=== PATIENT | female | born 1985 | race Caucasian/White ===

== ENCOUNTER → 2022-02-13 13:07 | Outpatient (CLI) | payer OTHER, SELFPAY ==
--- NOTE | 2022-02-13 13:13 | XR_ITS ---
FINAL REPORT CLINICAL HISTORY: right hand and wrist pain FINDINGS: RIGHT WRIST Three views demonstrate no acute fracture or dislocation. The visualized joint spaces are normally aligned. The joint spaces are intact. The soft tissues are unremarkable. IMPRESSION: No acute bony abnormality. Reviewed, Interpreted and Dictated by Emiliano Cornejo III, MD Transcribed by Della Aguillon Authenticated and [facility]
--- NOTE | 2022-02-13 13:13 | XR_ITS ---
FINAL REPORT CLINICAL HISTORY: right wrist and hand pain FINDINGS: RIGHT HAND Three views demonstrate no acute fracture. There is no dislocation. The visualized joint spaces are normally aligned. The joint spaces are preserved. The soft tissues are unremarkable. IMPRESSION: No acute bony abnormality. Reviewed, Interpreted and Dictated by Emiliano Cornejo III, MD Transcribed by Della Aguillon Authenticated and [facility]
== END ==
PROVIDERS: PCP Family Medicine; Visit Provider Family Medicine
DX: M25.531 Pain in right wrist (principal); M79.641 Pain in right hand
CPT/HCPCS: 73110; 73130

== ENCOUNTER 2024-12-30 10:35 | Outpatient (CLI) | payer MEDICAID, SELFPAY ==
--- OUTSIDE RECORDS SUMMARY | 2024-11-30 11:00 | XMS_ITS | Encounter Summary ---
Author Organization [place] [address] Care Team Providers Care Complaint Evaluation Officer Name Role Phone No Pcp, Per Patient Primary Care Provider Mallory payne Reason for Referral * Consultation (Routine) - Pending Review Specialty Diagnoses / Procedures Referred By Za blankenship Referred To Contact Otolaryngology Diagnoses Acute sinusitis, recurrence not specified, unspecified location Procedures [place] OFFICE/OUTPATIENT NEW MODERATE MDM 45 MINUTES Homero Pruitt PA-C [address] [place] [address] Phone: tel: fax: [facility] [address] [place] [address] [place] [id number] Phone: tel: fax: Referral ID Status Reason Start Date Expiration Date V isits Requested Visits Authorized [id number] Pending Review 11/30/2024 11/30/2025 99 99 Reason for Visit * Reason Comments Nasal Congestion with headache, body aches, nausea, slight cough, and sore throat mainly at night x 3 WEEKS Encounter Details Date Type Department Care Team (Late st Contact Info) Description 11/30/2024 12:00 PM EDT Office Visit [facility] [address] [id number] Homero Pruitt PA-C [address] [place] [address] Acute sinusitis, recurrence not specified, unspecified location (Primary Dx) Social History Tobacco Use Types Packs/Day Years Used Date Smoking Tobacco: Former Cigarettes Q uit: 2023 Smokeless Tobacco: Never Alcohol Use Standard Drinks/Week Comments Not Currently 0 (1 standard drink = 0.6 oz pur e alcohol) sober 4 years + Sexually Active Control Partners Comments Not Currently Comments No Sex and Gender Information Value Date Recorded Sex Assigned at Not on file Legal Sex Female 9:18 PM EDT Gender Identity Not on file Sexual Orientation Not on file documented as of this encounter Last Filed Vital Signs Vital Sign Reading Time Taken Comments Blood Pressure 130/82 11/30/2024 12:11 PM EDT Pulse 83 11/30/2024 12:11 PM EDT Temperature 36.6 C (97.8 F) 11/30/2024 12:11 PM EDT Respiratory Rate 12 11/30/2024 12:11 PM EDT Oxygen Saturation 99% 11/30/2024 12:11 PM EDT Inhaled Oxygen Concentration - - Weight 73.5 kg (162 lb) 11/30/2024 12:11 PM EDT Height 152.4 cm (5') 11/30/2024 12:11 PM EDT Body Mass Index 31.64 11/30/2024 12:11 PM EDT documented in this encounter Ordered Prescriptions Prescription Sig Dispense Quantity Refills Last Filled Start Date End Date methylPREDNISolon e (MEDROL DOSPACK) 4 mg Oral Tablets, Dose PackIndications:A cute sinusitis, recurrence not specified, unspecified location See package instructions 21 Tablet 11/30/2024 azithromycin (ZITHROMAX) 250 mg Oral TabletIndications :Acute sinusitis, recurrence not specified, unspecified location Take 2 tablets (500 mg) on Day 1, followed by 1 tablet (250 mg) once daily on Days 2 through 5. 6 Tablet 11/30/2024 documented in this encounter Progress Notes * Homero Pruitt PA-C - 11/30/2024 12:00 PM EDT Subjective: Patient ID: Rachele Velásquez is a 39 y.o. female. Chief Complaint Patient presents with Nasal Congestion with headache, body aches, nausea, slight cough, and sore throat mainly at night x 3 WEEKS Patients past medical, family and social histories were reviewed and updated. There were no changesexcept as noted. 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 Rachele Velásquez is a Established Patient Last Urgent Care Visit: 04/15/2024 HPI: This is a 39 y.o. female that presents today with worsening cough, sinus/nasal congestion, myalgias, and sore throat. Symptoms began about 3 weeks ago and have persisted. She states some days are worse than others but over all symptoms have not necessarily worsened. They certainly have not improved. Cough is productive. + bilateral sinus pressure but greatest on the right compared to left. Confirms post nasal drainage. Denies fever. Mild sore throat. + Right ear pressure. She reports history of recurrent sinus infections and allergies. Objective: Vitals: 11/30/24 1211 BP: 130/82 BP Location: Left arm Patient Position: Sitting Pulse: 83 Resp: 12 Temp: 97.8 ??F (36.6 ??C) TempSrc: Oral SpO2: 99% Weight: 162 lb (73.5 kg) Height: 5' (1.524 m) Body mass index is 31.64 kg/m??. Physical Exam Constitutional: Appearance: Normal appearance. NAD. Non-toxic. HENT: Head: Atraumatic. Right Ear: External ear normal. EAC clear. TM clear without erythema, edema or bulging. Left Ear: External ear normal. EAC clear. TM clear without erythema, edema or bulging. Nose: Normal. Sinuses: Mild tenderness to the maxillary and frontal sinuses. Mouth: Mucous membranes are moist. Mouth/Throat: Oropharynx with mild generalized erythema and edema.. No tonsillar hypertrophy or exudate. Uvula normal and midline. Airway patent. Eyes: Conjunctiva/sclera: Conjunctivae normal. Sclera white. EOM's intact. Cardiovascular: Rate and Rhythm: Regular rhythm. Pulmonary: Effort: Pulmonary effort is normal. Lungs clear. No wheezing, rhonchi or rales. Skin: General: Skin is warm and dry. Neurological: Mental Status: She is alert. Psychiatric: Mood and Affect: Mood normal. Diagnostic Test Results: No results found for this visit on 11/30/24. Medical Decision Making: Patient was seen at Urgent Care today for worsening cough, sinus/nasal congestion and sore throat. Symptoms have worsened over several weeks and she has noted history of frequent sinus infections. On presentation, pt appears well. They are afebrile, not hypoxic or in any respiratory distress. Lungs clear on auscultation. There is some tenderness over the sinuses. Remainder of exam is unremarkable. Pt is treated for sinusitis. She has had success with Azithromycin and prednisone in the past. These are again prescribed today. She does appear to have recurrent sinusitis and is therefore referred to ENT. Pt was discharged home with follow-up and return precautions. Assessment & Plan Acute sinusitis, recurrence not specified, unspecified location Orders: azithromycin (ZITHROMAX) 250 mg Oral Tablet; Take 2 tablets (500 mg) on Day 1, followed by 1 tablet(250 mg) once daily on Days 2 through 5. methylPREDNISolone (MEDROL DOSPACK) 4 mg Oral Tablets, Dose Pack; See package instructions AMB REFERRAL TO ENT documented in this encounter Miscellaneous Notes * Patient Instructions - Homero Pruitt PA-C - 11/30/2024 12:00 PM EDT Take any prescribed medications as directed. You may additionally take [id number] antihistamine such as mia, zyrtec, claritin. Alternate Tylenol and Motrin every 4 hours as directed as needed for chills, fever. Follow-up with your primary care physician or return if not improved. Go to the ER if you develop significant shortness of breath, difficulty breathing, high fever, chest pain or other major concerning symptoms. documented in this encounter Plan of Treatment Scheduled Referrals Name Type Priority Associated Diagnoses Orde r Schedule AMB REFERRAL TO ENT Outpatient Referral Routine Acute sinusitis, recurrence not specified, unspecified location Ordered: 11/30/2024 documented as of this encounter Visit Diagnoses Diagnosis Acute sinusitis, recurrence not specified, unspecified location- Primary documented in this encounter Discontinued Medications Medication Sig Discontinue Reason Start Date End Da te escitalopram oxalate (LEXAPRO) 20 mg Oral Tablet DELETE-Therapy completed 11/30/2024 hydrOXYzine (ATARAX) 10 mg Oral Tablet Take 1 Tablet by mouth every 6 hours as needed for Itching. DELETE-Therapy completed 09/06/2023 11/30/2024 hydrOXYzine (ATARAX) 25 mg Oral Tablet Take 50 mg by mouth every 8 hours as needed for Itching. DELETE-Therapy completed 11/30/2024 documented as of this encounter Care Teams Complaint Evaluation Officer Relationship Specialty Start Date End Date No Pcp, Per Patient PCP - General 09/06/23 documented as of this encounter
--- OUTSIDE RECORDS SUMMARY | 2024-12-09 14:40 | XMS_ITS | Encounter Summary ---
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 Name Role Phone No Pcp, Per Patient Primary Care Provider Mallory payne Reason for Referral * MRI/CAT Scan (Routine) - Closed Specialty Diagnoses / Procedures Referred By Za blankenship Referred To Contact Radiology Diagnoses Chronic sinusitis, unspecified location Sinus pressure Hypertrophy of nasal turbinates Procedures CT SINUS LAND ALEJANDRINA WO CONTRAST Ezequiel Howard MD [address] [facility] [address] [facility] [place] [address] Phone: tel: fax: Referral ID Status Reason Start Date Expiration Date Visits Re quested Visits Authorized [id number] Closed 12/09/2024 12/09/2025 1 1 Reason for Visit * Reason Comments Sinus Problem * Consultation (Routine) - Pending Review Specialty Diagnoses / Procedures Referred By Za blankenship Referred To Contact Otolaryngology Diagnoses Acute sinusitis, recurrence not specified, unspecified location Procedures [place] OFFICE/OUTPATIENT NEW MODERATE MDM 45 MINUTES Homero Pruitt PA-C [address] [place] [address] Phone: tel: fax: [facility] [address] [address] Phone: tel: fax: Referral ID Status Reason Start Date Expiration Date V isits Requested Visits Authorized [id number] Pending Review 11/30/2024 11/30/2025 99 99 Encounter Details Date Type Department Care Team (Late st Contact Info) Description 12/09/2024 2:40 PM EST Office Visit [facility] [place] [address] [facility] 101 [place] [address] Ezequiel Howard MD [address] [facility] [address] [facility] [place] [address] Chronic sinusitis, unspecified location (Primary Dx); Sinus pressure; Recurrent headache; Hypertrophy of nasal turbinates Social History Tobacco Use Types Packs/Day Years [...] Sign Reading Time Taken Comments Blood Pressure - - Pulse - - Temperature - - Respiratory Rate - - Oxygen Saturation - - Inhaled Oxygen Concentration - - Weight 73.5 kg (162 lb 1.6 oz) 12/09/2024 2:25 P M EST Height 152.4 cm (5') 12/09/2024 2:25 PM EST Body Mass Index 31.66 12/09/2024 2:25 PM EST documented in this encounter Ordered Prescriptions Prescription Sig Dispense Quantity Refills Last Filled Start Date End Date fluticasone propionate (FLONASE) 50 mcg/actuation Nasl Lowry, SuspensionIndicati ons:Chronic sinusitis, unspecified location,Sinus pressure,Hypertrop hy of nasal turbinates 2 Sprays by Nasal route daily. 1 Each 5 12/09/2024 sod zwqgu-tuxgff-njuvo z bottle (NEILMED SINUS RINSE COMPLETE) melquiades packet with rinse deviceIndications: Chronic sinusitis, unspecified location,Sinus pressure,Hypertrop hy of nasal turbinates 1 Package by sinus irrigation route daily for 30 days. 30 Each 4 12/09/2024 documented in this encounter Progress Notes * Ezequiel Howard MD - 12/09/2024 2:40 PM EST Images from the original note were not included. Rachele Velásquez 39 y.o. female : 1985 12/09/2024 New Ear Nose Throat or Allergy Patient - Pediatric or Adult Ezequiel Howard MD, [facility] Referring Provider: Homero Pruitt PA-C Assessment and Plan: 12/09/2024 Diagnoses addressed this visit: 1. Chronic sinusitis, unspecified location CT SINUS LAND ALEJANDRINA WO CONTRAST sod aiiku-xomaqc-vclnil bottle (NEILMED SINUS RINSE COMPLETE) melquiades packet with rinse device fluticasone propionate (FLONASE) 50 mcg/actuation Nasl Lowry, Suspension 2. Sinus pressure CT SINUS LAND ALEJANDRINA WO CONTRAST sod riyeb-lhngqz-luujha bottle (NEILMED SINUS RINSE COMPLETE) melquiades packet with rinse device fluticasone propionate (FLONASE) 50 mcg/actuation Nasl Lowry, Suspension 3. Recurrent headache 4. Hypertrophy of nasal turbinates CT SINUS LAND ALEJANDRINA WO CONTRAST sod lrjrc-ugjuwe-kzschb bottle (NEILMED SINUS RINSE COMPLETE) melquiades packet with rinse device fluticasone propionate (FLONASE) 50 mcg/actuation Nasl Lowry, Suspension Ms Velásquez is a pleasant 39-year-old lady who presented today for evaluation of chronic sinusitis. She was tested for environmental allergies 2 years ago which showed no significant sensitivities. She has tried Flonase, saline, azelastine, and Atrovent sprays all without relief. She recently completed a course of azithromycin as well as a Medrol Dosepak but still has persistent symptoms of facial pressure, headaches, nasal congestion. Because she recently completed the antibiotics and steroids recommended proceeding with CT imaging of her sinuses. I will have her continue the Flonase and saline sprays but stop the azelastine. I will follow-up with her after the CT imaging is complete. Return for FOLLOW UP TEST RESULTS. Chief Complaint: Sinus Problem HPI Rachele Velásquez is a 39 y.o. female who is being seen in consultation at the request of Homero Pruitt PA-C for Sinusitis . Patient states symptoms started years ago. Symptoms include: headaches itchy eyes itchy nose sore throat nasal congestion postnasal drip pressure sensation in ears sinus pressure sneezing watery eyes sinus congestion fatigue Worst Symptom: headaches sinus pressure Are symptoms seasonal or all year long? all year long Worst season(s): all the time Environmental triggers? Basement: Yes--it is damp dog , pt vapes, and mother smokes around her Medications currently using: Allergy/ Sinus Medications: Oral Antihistamines: Zyrtec; somewhat effective Antibiotics ( How long was treatment): Azithromycin- not very effective Medications tried in past: Antihistamines: Claritin; ineffective and Carolyn; ineffective Steroid nasal spray: none Non-Steroid nasal spray: Astelin- somewhat effective Decongestants: none Singulair: No Oral Steroid: No Saline nasal spray: No Saline irrigation (such as Neti pot, Sinus rinse by [employer] [facility] or Navage): No History of: Nasal Polyps? no Asthma or eczema? Yes Chronic or recurrent sinus infections? Yes; monthly Sinus surgery? no Previously been allergy tested or received treatment with immunotherapy? If so, where? yes, explain: 1-[address] Sinus imaging? no Other testing? no Does the patient have any trouble with anesthesia? no Is there a family history of: Trouble with anesthesia? no Malignant Hyperthermia (high fever due to anesthesia)? no Pseudo cholinesterase deficiency (enzyme deficiency/very long time to wake from anesthesia)? no I, Dr.Nathan Howard, have personally reviewed all above HPI elements in person and have updated as needed. Exam: Vitals: 12/09/24 1425 Weight: 162 lb 1.6 oz (73.5 kg) Height: 5' (1.524 m) Body mass index is 31.66 kg/m??. General: -: well nourished, well developed, well groomed, age appropriate oral communication, normal voice sounds, no stridor Head and Face: -: no abnormalities of head and face, facial strength symmetrical Eyes: -: ocular mobility and gaze alignment normal wears glasses: Yes External Nose: -: Nasal dorsum grossly normal, without lesion Internal Nose: Mucosa: edematous Turbinates: hypertrophied Hearing: -: Clinical hearing thresholds-Normal Right Ear: -: Pre and post-auricular soft tissue and pinna normal, Right auricle, EAC and TM Normal Left Ear: -: Pre and post-auricular soft tissue and pinna normal, Left auricle, EAC and TM normal Oral Cavity: Edentulous: upper, lower Oropharynx: -: Mucosa without lesion, tongue, hard palate, soft palate and tonsillar fossa within normal limits Respiratory: -: (no stridor) Neurological: -: Alert, appropriate and does not appear agitated, Oriented to time, place and person, Normal mood and affect Medical History: Medications ordered prior to the current encounter[1] Problem List[2] Past Medical History[3] Allergies[4] Surgical History[5] Social History[6] Family History[7] [facility] [address] [facility] [phone] This note may have been partially dictated using [employer] voice recognition software and may contain unintended error. [1] Current Outpatient Medications on File Prior to Visit Medication Sig Dispense Refill ARIPiprazole (ABILIFY) 5 mg Oral Tablet Take 5 mg by mouth daily. azelastine (ASTELIN) 137 mcg (0.1 %) Nasl Lowry, Non-Aerosol use 2 spray(s) in each nostril twice daily cloNIDine (CATAPRES) 0.1 mg Oral Tablet TAKE 1 TABLET BY MOUTH IN THE EVENING NEEDED FOR ANXIETYAND IRRITABILITY DEPO-PROVERA 150 mg/mL IM Suspension Inject 1 mL every 12 weeks dicyclomine (BENTYL) 20 mg Oral Tablet Take 1 Tablet by mouth 3 times daily. fexofenadine (CAROLYN) 180 mg Oral Tablet 180 mg. fluticasone propionate (FLONASE) 50 mcg/actuation Nasl Lowry, Suspension USE 1 SPRAY(S) IN EACH NOSTRIL ONCE DAILY ipratropium (ATROVENT) 42 mcg (0.06 %) Nasl Lowry, Non-Aerosol 2 Sprays by Nasal route 3 times daily. 15 mL 2 lamoTRIgine (LAMICTAL) 100 mg Oral Tablet Take 1 Tablet by mouth daily. meloxicam (MOBIC) 15 mg Oral Tablet TAKE 1 TABLET BY MOUTH ONCE DAILY NEEDED WITH FOOD methylcellulose (CITRUCEL) 500 mg Oral Tablet Take 2 Tablets by mouth daily. methylPREDNISolone (MEDROL DOSPACK) 4 mg Oral Tablets, Dose Pack See package instructions 21 Tablet0 montelukast (SINGULAIR) 10 mg Oral Tablet Take 1 Tablet by mouth nightly. phentermine (ADIPEX-P) 37.5 mg Oral Tablet TAKE 1 TABLET BY MOUTH ONCE DAILY FOR 30 DAYS propranoloL (INDERAL) 10 mg Oral Tablet TAKE 1/2 TO 1 (ONE-HALF TO ONE) TABLET BY MOUTH TWICE DAILYAS NEEDED FOR ANXIETY pseudoephedrine (SUDAFED) 30 mg Oral Tablet Take 1 Tablet by mouth every 6 hours as needed for Congestion. 30 Tablet 0 SUMAtriptan (IMITREX) 50 mg Oral Tablet valACYclovir (VALTREX) 500 mg Oral Tablet vilazodone (VIIBRYD) 20 mg Oral Tablet TAKE 1 TABLET BY MOUTH ONCE DAILY WITH 350 CALORIE MEAL vilazodone (VIIBRYD) 40 mg Oral Tablet TAKE 1 TABLET BY MOUTH ONCE DAILY TAKE WITH A 350 CALORIE MEAL VRAYLAR 1.5 mg Oral Capsule take 1 capsule by mouth once daily as directed ZOLMitriptan (ZOMIG) 2.5 mg Oral Tablet TAKE 1 TABLET AT ONSET OF MIGRAINE, MAY REPEAT IN 1 HOUR IFNEEDED. MAX 2 TABLETS PER DAY // SUMATRIPTAN NOT APPROVED, PLEASE DC OUT OF YOUR SYSTEM No current facility-administered medications on file prior to visit. [2] There is no problem list on file for this patient. 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 No pertinent family history. documented in this encounter Miscellaneous Notes * Patient Instructions - Jillian Agrawal RMA - 12/09/2024 2:40 PM EST Images from the original note were not included. Please call our Central Scheduling department at to schedule your CT sinus. Nasal saline irrigation is used to maximize the health of the sinuses particularly in patients withpoor sinus function due to a history of chronic sinus problems or patients recently undergoing surgery. Saline preparation: Our preferred method is to use the Spoke Sinus Rinse bottle system and the premixed saline packets. Follow the directions that come with the bottle for preparation. You will want to use distilled water or sterilize your own water by boiling water and placing it in a pitcher. Allow it to cool to room temperature before rinsing your nose out. You will fill up the provided bottle or neti pot with the water and add in 1 packet of the salt that comes with the kit. Irrigation instructions: 1. Insert either a squeeze bottle (preferred), baby bulb syringe, or a water pik attachment gently into your nose an inch or less. 2. Lean your head over a sink. 3. Wash each side of your nose with enough solution until it runs back out clear (at least 50cc). 4. Perform nasal irrigation twice a day as long as directed or until instructed to use a taper schedule. 5. If you use a nasal steroid or other medicated rinse: You should always use the saline rinse before using your medicated spray or rinse so you do not rinse out the medication. 6. Change the bottle, bulb, or syringe out every two weeks. Preparing your own saline mixture Some patients prefer to prepare their own saline. Below are instructions for doing this. a. Boil 1 quart of tap or bottled water and pour into a clean jar. b. Add 1 to 3 teaspoons of non-iodized salt per quart of water and shake or stir. Adjust the amountof salt as needed that irritates your nose the least. c. Some people prefer to add 1 teaspoon of baking soda (pure bicarbonate) to the solution to make it less irritating. This is optional. d. Make up fresh each day or store in a refrigerator for no longer than one week. e. LET THE WATER COOL TO ROOM TEMPERATURE BEFORE IRRIGATING YOUR NOSE. If it has been in the refrigerator you can warm it to room temperature with a microwave if preferred. DO NOT USE HOT SOLUTION. f. Pour some of the solution into a clean bowl and fill the bottle or syringe with the salt water mixture. documented in this encounter Plan of Treatment Not on file documented as of this encounter Results * CT SINUS LAND ALEJANDRINA WO CONTRAST (12/28/2024 2:58 PM EST) Anatomical Region Laterality Modality Head Computed Tomogra phy 12/28/2024 2:58 PM EST Impressions 12/29/2024 8:58 AM EST 1. Overall mild to moderate diffuse nonuniform paranasal sinus disease with greatest involvement bilateral ethmoid sinuses, left maxillary and left frontal sinuses. No sequelae of chronic sinusitis. 2. No nasal cavity polypoid type mass. 3. Specific anatomical findings as noted above. Note: Radiology results need to be interpreted within a comprehensive clinical context. If you have questions about the radiology report, please contact the office of the ordering clinician. Narrative 12/29/2024 8:[address] SINUS LAND ALEJANDRINA WO CONTRAST 12/28/2024 2:58 PM CLINICAL HISTORY: 39 years-old with chronic sinusitis with sinus pressure and hypertrophy of nasal turbinates. J32.9-Chronic sinusitis, ptgovpleuis-SOC-74-CM J34.89-Other specified disorders of nose and nasal avzbgtj-TDH-94-CM J34.3-Hypertrophy of nasal dlhtrlzhzv-VSD-70-CM COMPARISON: None. PROCEDURE COMMENTS: Volumetric helical scanning of the paranasal sinuses. 1 mm multiplanar reconstructions with bone and soft tissue algorithm. FINDINGS: Both maxillary sinuses have aerated secretions, some dependent and some foamy, with mild to moderate involvement on the left and mild involvement on the right. Left infundibulum is patent. Inferior right infundibulum is narrowed by soft tissues. Both ethmoid sinuses have moderate nonuniform opacification. Mild mucosal thickening at both frontal ethmoid junction, left greater than right. Upper left frontal sinus has mild to moderate confluent opacification. Minimal very mild mucosal thickening involves bilateral sphenoid sinuses inferiorly and posteriorly; right greater than left. No bony sinus wall hypertrophy. Nasal septum is relatively straight. Subtle curvature towards the left at its mid aspect. Small amount of asymmetric soft tissue occupies medial mid right nasal cavity. No large polypoid like defect. Each middle meatus is patent. Orbital and facial soft tissues show no inflammatory change. Patient is edentulous superiorly. Mastoid sinuses and middle ear cavities are clear. Included portions of inferior brain and nasopharynx are unremarkable. Surgical anatomy below: Cribriform: No dehiscence. Olfactory recess Keros class: Right: Type II (4-7mm.) Left: Type II (4-7mm.) Lamina papyracea: Intact bilaterally. Soraya cell: None. Uncinate impingement on orbital wall: None. Anterior ethmoidal artery: Anterior ethmoidal notch abuts the fovea ethmoidalis bilaterally. Mild bilateral supraorbital ethmoid pneumatization although currently opacified. Sphenoid pneumatization is sellar. Anterior clinoid pneumatization: No pneumatization. Onodi cells: None Sphenoid dehiscence: No carotid canal or optic canal dehiscence. No septal insertion on either carotid canal. Procedure Note Cindi Earl MD - 12/29/2024 CT SINUS LAND ALEJANDRINA WO CONTRAST 12/28/2024 2:58 PM CLINICAL HISTORY: 39 years-old with chronic sinusitis with sinus pressureand hypertrophy of nasal turbinates. J32.9-Chronic sinusitis,nrdepicutyk-FFH-37-CM J34.89-Other specified disorders of nose and nasal ixlxmea-XDZ-98-CM J34.3-Hypertrophy of nasal fevupkbobn-CAG-36-CM COMPARISON: None. PROCEDURE COMMENTS: Volumetric helical scanning of the paranasal sinuses.1 mm multiplanar reconstructions with bone and soft tissue algorithm. FINDINGS: Both maxillary sinuses have aerated secretions, some dependent and somefoamy, with mild to moderate involvement on the left and mild involvement on theright. Left infundibulum is patent. Inferior right infundibulum is narrowed bysoft tissues. Both ethmoid sinuses have moderate nonuniform opacification.Mild mucosal thickening at both frontal ethmoid junction, left greater thanright. Upper left frontal sinus has mild to moderate confluent opacification.Minimal very mild mucosal thickening involves bilateral sphenoid sinusesinferiorly and posteriorly; right greater than left. No bony sinus wall hypertrophy. Nasal septum is relatively straight.Subtle curvature towards the left at its mid aspect. Small amount of asymmetricsoft tissue occupies medial mid right nasal cavity. No large polypoid likedefect. Each middle meatus is patent. Orbital and facial soft tissues show no inflammatory change. Patient is edentulous superiorly. Mastoid sinuses and middle ear cavities areclear. Included portions of inferior brain and nasopharynx are unremarkable. Surgical anatomy below: Cribriform: No dehiscence. Olfactory recess Keros class: Right: Type II (4-7mm.) Left: Type II(4-7mm.) Lamina papyracea: Intact bilaterally. Soraya cell: None. Uncinate impingement on orbital wall: None. Anterior ethmoidal artery: Anterior ethmoidal notch abuts the foveaethmoidalis bilaterally. Mild bilateral supraorbital ethmoid pneumatization although currently opacified. Sphenoid pneumatization is sellar. Anterior clinoid pneumatization: No pneumatization. Onodi cells: None Sphenoid dehiscence: No carotid canal or optic canal dehiscence. Noseptal insertion on either carotid canal. IMPRESSION: 1. Overall mild to moderate diffuse nonuniform paranasal sinus diseasewith greatest involvement bilateral ethmoid sinuses, left maxillary and leftfrontal sinuses. No sequelae of chronic sinusitis. 2. No nasal cavity polypoid type mass. 3. Specific anatomical findings as noted above. Note: Radiology results need to be interpreted within a comprehensiveclinical context. If you have questions about the radiology report, please contactthe office of the ordering clinician. us Ezequiel Howard MD IMG CT ORDERABLES Final Resu lt documented in this encounter Visit Diagnoses Diagnosis Chronic sinusitis, unspecified location- Primary Sinus pressure Other diseases of nasal cavity and sinuses Recurrent headache Headache Hypertrophy of nasal turbinates Chronic sinusitis, unspecified location Sinus pressure Other diseases of nasal cavity and sinuses Hypertrophy of nasal turbinates documented in this encounter Care Teams Tube Rebuilder Relationship Specialty Start Date End Date No Pcp, Per Patient PCP - General 09/06/23 documented as of this encounter
--- OUTSIDE RECORDS SUMMARY | 2024-12-11 12:30 | XMS_ITS | Encounter Summary ---
Author Organization [place] [address] Care Team Providers Care Intake Specialist Name Role Phone No Pcp, Per Patient Primary Care Provider Mallory payne Reason for Referral * Consultation (Routine) - Pending Review Specialty Diagnoses / Procedures Referred By Za blankenship Referred To Contact Family Medicine Diagnoses Sore throat Chest tightness Shortness of breath Viral URI Procedures [place] OFFICE/OUTPATIENT NEW MODERATE MDM 45 [place] [address] [place] [id number] Phone: tel: fax: Referral ID Status Reason Start Date Expiration Date V isits Requested Visits Authorized [id number] Pending Review 12/11/2024 12/11/2025 99 99 Question Answer Reason for Primary Care Referral Establish with Primary Care Reason for Visit * Reason Comments Sore Throat sore throat, body ac hes, hard to take deep breaths, pressure and tightness in the chest, x this morning Encounter Details Date Type Department Care Team (Late st Contact Info) Description 12/11/2024 12:30 PM EST Office Visit [facility] [address] [phone] [place] [address] [place] [id number] Viral URI (Primary Dx); Sore throat; Chest tightness; Shortness of breath; Right bundle branch block Social History Tobacco Use Types Packs/Day Years [...] Sign Reading Time Taken Comments Blood Pressure 108/76 12/11/2024 12:34 PM EST Pulse 76 12/11/2024 1:10 PM EST Temperature 36.7 C (98 F) 12/11/2024 12:34 PM EST Respiratory Rate 18 12/11/2024 12:34 PM EST Oxygen Saturation 98% 12/11/2024 1:10 PM EST Inhaled Oxygen Concentration - - Weight 73.1 kg (161 lb 3.2 oz) 12/11/2024 12:34 PM EST Height 152.4 cm (5') 12/11/2024 12:34 PM EST Body Mass Index 31.48 12/11/2024 12:34 PM EST documented in this encounter Patient Instructions * Attachments The following attachments cannot be sent through Care Everywhere. * Upper respiratory infection in adults ??? ED discharge instructions ([place]ayan) documented in this encounter Ordered Prescriptions Prescription Sig Dispense Quantity Refills Last Filled Start Date End Date albuterol (PROVENTIL HFA;VENTOLIN HFA) 90 mcg/actuation Inhl HFA Aerosol InhalerIndications :Chest tightness,Shortnes s of breath,Viral URI Inhale 2 Puffs into the lungs every 4 hours as needed for Wheezing. 1 Each 2 12/11/2024 ipratropium (ATROVENT) 42 mcg (0.06 %) Nasl [place], Non-AerosolIndicat ions:Chest tightness,Shortnes s of breath,Viral URI 2 Sprays by Nasal route 4 times daily as needed for Rhinitis. 2 sprays each nostril 15 mL 12/11/2024 documented in this encounter Progress Notes * Dawit Amador MD - 12/11/2024 12:30 PM ESTAssociated Problem(s): Right bundle branch block Diagnosis discussed Strep and viral swab negative EKG with progression of incomplete right bundle branch block compared to last EKG, but given that this was already noted on her problem list, this is probably not a new finding Patient received a DuoNeb breathing treatment with some improvement in her chest tightness She has nasal congestion but is otherwise well-appearing without any difficulty breathing Symptomatic management reviewed Atrovent nasal spray and albuterol refilled Isolation protocols reviewed Orders: POCT CEPHEID SARS COV-2 RNA + FLU A/B + RSV POCT CEPHEID STREP A DNA POCT EKG albuterol-ipratropium (DUO-NEB) 3 mg-0.5 mg(2.5 mg base)/3 mL nebulizer solution 3 mL ipratropium (ATROVENT) 42 mcg (0.06 %) Nasl [place], Non-Aerosol; 2 Sprays by Nasal route 4 times daily as needed for Rhinitis. 2 sprays each nostril albuterol (PROVENTIL HFA;VENTOLIN HFA) 90 mcg/actuation Inhl HFA Aerosol Inhaler; Inhale 2 Puffs into the lungs every 4 hours as needed for Wheezing. AMB REFERRAL TO FAMILY PRACTICE * Dawit Amador MD - 12/11/2024 12:30 PM EST Subjective: Patient ID: Rachele Velásquez is a 39 y.o. female. Chief Complaint Patient presents with Sore Throat sore throat, body aches, hard to take deep breaths, pressure and tightness in the chest, x this morning HPI: Woke up this morning with sore throat, runny nose, chest congestion, chest tightness, and some difficulty breathing Denies chest pain or coughing up anything Denies fever, nausea, vomiting, diarrhea, or other symptoms Endorses a history of smoking/vaping Vaping only currently Denies history of COPD Has been told she has asthma previously but says she is not sure Patients past medical, family and social histories were reviewed and updated. There were no changesexcept as noted. Review of Systems Objective: Vitals: 12/11/24 1234 12/11/24 1310 BP: 108/76 BP Location: Right arm Patient Position: Sitting Pulse: 83 76 Resp: 18 Temp: 98 ??F (36.7 ??C) TempSrc: Oral SpO2: 98% 98% Weight: 161 lb 3.2 oz (73.1 kg) Height: 5' (1.524 m) Body mass index is 31.48 kg/m??. Physical Exam Constitutional: General: She is not in acute distress. Appearance: Normal appearance. She is not ill-appearing or toxic-appearing. HENT: Head: Normocephalic and atraumatic. Right Ear: Tympanic membrane, ear canal and external ear normal. Left Ear: Tympanic membrane, ear canal and external ear normal. Nose: Congestion and rhinorrhea present. Mouth/Throat: Mouth: Mucous membranes are moist. Pharynx: Oropharynx is clear. No oropharyngeal exudate or posterior oropharyngeal erythema. Eyes: General: Right eye: No discharge. Left eye: No discharge. Cardiovascular: Rate and Rhythm: Normal rate and regular rhythm. Heart sounds: No murmur heard. Pulmonary: Effort: Pulmonary effort is normal. No respiratory distress. Breath sounds: No wheezing or rales. Comments: No conversational dyspnea or obvious discomfort Abdominal: General: Abdomen is flat. There is no distension. Palpations: Abdomen is soft. Tenderness: There is no abdominal tenderness. Musculoskeletal: General: No signs of injury. Right lower leg: No edema. Left lower leg: No edema. Lymphadenopathy: Cervical: Cervical adenopathy (anterior) present. Skin: General: Skin is warm and dry. Neurological: General: No focal deficit present. Mental Status: She is alert. Psychiatric: Mood and Affect: Mood normal. Results for orders placed or performed in visit on 12/11/24 POCT CEPHEID SARS COV-2 RNA + FLU A/B + RSV Result Value Ref Range SARS COV-2 RNA Negative Negative, Invalid INFLUENZA A Negative Negative, Invalid INFLUENZA B Negative Negative, Invalid RSV Negative Negative, Invalid Lot Number [id number] Expiration Date 01/10/26 POCT CEPHEID STREP A DNA Result Value Ref Range STREP A DNA Negative Negative, Invalid Lot Number Expiration Date POCT EKG Impression Sinus rhythm Incomplete right bundle branch block Compared to EKG from 05/30/2024; incomplete right bundle is new/advanced Creatinine Date Value Ref Range Status 05/29/2024 0.79 0.51 - 1.30 mg/dL Final eGFR (CKD-EPIcr 2020) Date Value Ref Range Status 05/29/2024 99 >=60 mL/min/1.73 m2 Final Comment: Estimated GFR was calculated using the CKD-EPIcr (2020) equation refit without race. The equation is recommended by the [employer] - [place] [employer] Neph[employer] Task Force. Lab Results Component Value Date ALT 16 05/29/2024 AST 29 05/29/2024 ALKPHOS 87 05/29/2024 Assessment & Plan Viral URI Sore throat Chest tightness Shortness of breath Right bundle branch block Diagnosis discussed Strep and viral swab negative EKG with progression of incomplete right bundle branch block compared to last EKG, but given that this was already noted on her problem list, this is probably not a new finding Patient received a DuoNeb breathing treatment with some improvement in her chest tightness She has nasal congestion but is otherwise well-appearing without any difficulty breathing Symptomatic management reviewed Atrovent nasal spray and albuterol refilled Isolation protocols reviewed Orders: POCT CEPHEID SARS COV-2 RNA + FLU A/B + RSV POCT CEPHEID STREP A DNA POCT EKG albuterol-ipratropium (DUO-NEB) 3 mg-0.5 mg(2.5 mg base)/3 mL nebulizer solution 3 mL ipratropium (ATROVENT) 42 mcg (0.06 %) Nasl [place], Non-Aerosol; 2 Sprays by Nasal route 4 times daily as needed for Rhinitis. 2 sprays each nostril albuterol (PROVENTIL HFA;VENTOLIN HFA) 90 mcg/actuation Inhl HFA Aerosol Inhaler; Inhale 2 Puffs into the lungs every 4 hours as needed for Wheezing. AMB REFERRAL TO FAMILY PRACTICE Return precautions provided. This note was composed with the help of [employer] voice recognition software. Attempts were made to proofread at the time of dictation; however, news technical director errors may still occur. No follow-ups on file. documented in this encounter Miscellaneous Notes * Patient Instructions - Dawit Amador MD - 12/11/2024 12:30 PM EST Your EKG shows no concerning changes You are negative for strep, COVID, flu, and RSV. Please use the Atrovent (ipratropium) nasal spray for congestion and cough. You may also add zzvq-jwi-ydaueer Mucinex (guaifenesin) to help with coughing. Use the albuterol inhaler as needed for cough and chest tightness Tylenol (acetaminophen) 1,000mg every 8 hours as needed You may also use your home meloxicam as needed for pain Do NOT also use other jcuc-ino-bjkirig products that also contain acetaminophen or ibuprofen so that you do not get too much of either medication. You may also use salt water gargles, honey, and cough drops for sore throat or coughing. Seek care if worsening or failing to improve. Make an appointment with primary care to establish care. Go to the ER if you develop chest pain, shortness of breath, coughing up blood, or other concerningsymptoms documented in this encounter Plan of Treatment Pending Results Name Type Priority Associated Diagnoses Date /Time POCT EKG Point of Care Testing Routine Chest tightness 12/11/2024 12:45 PM EST Scheduled Referrals Name Type Priority Associated Diagnoses Orde r Schedule AMB REFERRAL TO FAMILY PRACTICE Outpatient Referral Routine Sore throat Chest tightness Shortness of breath Viral URI Ordered: 12/11/2024 documented as of this encounter Procedures Procedure Name Priority Date/Time Associated Diagnosis Comments POCT CEPHEID SARS COV-2 RNA + FLU A/B + RSV Routine 12/11/2024 1:17 PM EST Sore throat POCT CEPHEID STREP A DNA Routine 12/11/2024 1:07 PM EST Sore throat POCT EKG Routine 12/11/2024 12:45 PM EST Chest tightness documented in this encounter Results * POCT CEPHEID SARS COV-2 RNA + FLU A/B + RSV (12/11/2024 1:17 PM EST) SARS COV-2 RNA Negative Negative, Invalid [facility] INFLUENZA A Negative Negative, Invalid [facility] INFLUENZA B Negative Negative, Invalid [facility] RSV Negative Negative, Invalid [facility] Lot Number [id number] [facility] Expiration Date 01/10/26 [facility] 12/11/2024 1:17 PM EST Dawit Amador MD POINT OF CARE TEST ORDERAB LES Final Result [facility] * POCT CEPHEID STREP A DNA (12/11/2024 1:07 PM EST) Pathologist [facility] STREP A DNA Negative Negative, Invalid [facility] Lot Number [facility] Expiration Date [facility] 12/11/2024 1:07 PM EST Dawit Amador MD POINT OF CARE TEST ORDERAB LES Final Result Performing Organization Address [facility] Co de Phone Number [facility] documented in this encounter Visit Diagnoses Diagnosis Viral URI- Primary Acute upper respiratory infections of unspecified site Sore throat Acute pharyngitis Chest tightness Other chest pain Shortness of breath Right bundle branch block documented in this encounter Administered Medications Inactive Administered Medications - up to 1 most recent administrations Medication Order MAR Action Action Date Dose Rate Site albuterol-ipratropium (DUO-NEB) 3 mg-0.5 mg(2.5 mg base)/3 mL nebulizer solution 3 mL 3 mL, Nebulization, ONCE, 1 dose, On Brigette 12/11/24 at 1315, Administered by Respiratory Therapy., Dx: 1. Chest tightness 2. Shortness of breathIndications:Chest tightness,Shortness of breath Given 12/11/2024 1:00 PM EST 3 mL documented in this encounter Discontinued Medications Medication Sig Discontinue Reason Start Date End Da te ipratropium (ATROVENT) 42 mcg (0.06 %) Nasl [place], Non-AerosolIndications:C OVID 2 Sprays by Nasal route 3 times daily. Cancelled by 10/15/2023 12/11/2024 documented as of this encounter Historical Medications * This list may reflect changes made after this encounter. ondansetron (ZOFRAN-ODT) 4 mg Oral Tablet, Rapid Dissolve DISSOLVE 1 TABLET IN MOUTH EVERY 6 HOURS NEEDED FOR NAUSEA FOR UP TO 30 DAYS added in this encounter Care Teams Intake Specialist Relationship Specialty Start Date End Date No Pcp, Per Patient PCP - General 09/06/23 documented as of this encounter
--- OUTSIDE RECORDS SUMMARY | 2024-12-28 14:49 | XMS_ITS | Encounter Summary ---
Author Organization [place] [address] Care Team Providers Care Barrelhead Inspector Name Role Phone No Pcp, Per Patient Primary Care Provider Mallory payne Reason for Referral * MRI/CAT Scan (Routine) - Closed Specialty Diagnoses / Procedures Referred By Za blankenship Referred To Contact Radiology Diagnoses Chronic sinusitis, unspecified location Sinus pressure Hypertrophy of nasal turbinates Procedures CT SINUS LAND ALEJANDRINA WO CONTRAST Ezequiel Howard MD [address] [place] [address] [facility] [place] [address] Phone: tel: fax: Referral ID Status Reason Start Date Expiration Date Visits Re quested Visits Authorized [id number] Closed 12/09/2024 12/09/2025 1 1 Reason for Visit * MRI/CAT Scan (Routine) - Closed Specialty Diagnoses / Procedures Referred By Za blankenship Referred To Contact Radiology Diagnoses Chronic sinusitis, unspecified location Sinus pressure Hypertrophy of nasal turbinates Procedures CT SINUS LAND ALEJANDRINA WO CONTRAST Ezequiel Howard MD [address] [place] [address] [facility] [place] [address] Phone: tel: fax: Referral ID Status Reason Start Date Expiration Date Visits Re quested Visits Authorized [id number] Closed 12/09/2024 12/09/2025 1 1 Encounter Details Date Type Department Care Team (Latest Contact Info) Description 12/28/2024 2:49 PM EST - 12/28/2024 11:59 PM EST [facility] [address] [place] [address] Ezequiel Howard MD [address] [facility] [address] [facility] [place] [address] Chronic sinusitis, unspecified location; Sinus pressure; Hypertrophy of nasal turbinates Discharge Disposition: Home or Self Care Social History Tobacco Use Types Packs/Day Years [...] on file documented as of this encounter Medications at Time of Discharge ARIPiprazole (ABILIFY) 5 mg Oral Tablet Take 5 mg by mouth daily. 10/10/2023 azelastine (ASTELIN) 137 mcg (0.1 %) Nasl [place], Non-Aerosol use 2 spray(s) in each nostril twice daily 02/04/2024 cloNIDine (CATAPRES) 0.1 mg Oral Tablet TAKE 1 TABLET BY MOUTH IN THE EVENING NEEDED FOR ANXIETY AND IRRITABILITY DEPO-PROVERA 150 mg/mL IM Suspension Inject 1 mL every 12 weeks 08/29/2022 dicyclomine (BENTYL) 20 mg Oral Tablet Take 1 Tablet by mouth 3 times daily. fexofenadine (CAROLYN) 180 mg Oral Tablet 180 mg. fluticasone propionate (FLONASE) 50 mcg/actuation Nasl [place], Suspension USE 1 SPRAY(S) IN EACH NOSTRIL ONCE DAILY lamoTRIgine (LAMICTAL) 100 mg Oral Tablet Take 1 Tablet by mouth daily. meloxicam (MOBIC) 15 mg Oral Tablet TAKE 1 TABLET BY MOUTH ONCE DAILY NEEDED WITH FOOD 03/28/2024 methylcellulose (CITRUCEL) 500 mg Oral Tablet Take 2 Tablets by mouth daily. methylPREDNISolon e (MEDROL DOSPACK) 4 mg Oral Tablets, Dose PackIndications:A cute sinusitis, recurrence not specified, unspecified location See package instructions 21 Tablet 11/30/2024 montelukast (SINGULAIR) 10 mg Oral Tablet Take 1 Tablet by mouth nightly. phentermine (ADIPEX-P) 37.5 mg Oral Tablet TAKE 1 TABLET BY MOUTH ONCE DAILY FOR 30 DAYS propranoloL (INDERAL) 10 mg Oral Tablet TAKE 1/2 TO 1 (ONE-HALF TO ONE) TABLET BY MOUTH TWICE DAILY NEEDED FOR ANXIETY 09/19/2023 pseudoephedrine (SUDAFED) 30 mg Oral TabletIndications :COVID Take 1 Tablet by mouth every 6 hours as needed for Congestion. 30 Tablet 10/15/2023 SUMAtriptan (IMITREX) 50 mg Oral Tablet 04/13/2023 valACYclovir (VALTREX) 500 mg Oral Tablet 03/04/2023 vilazodone (VIIBRYD) 20 mg Oral Tablet TAKE 1 TABLET BY MOUTH ONCE DAILY WITH 350 CALORIE MEAL vilazodone (VIIBRYD) 40 mg Oral Tablet TAKE 1 TABLET BY MOUTH ONCE DAILY TAKE WITH A 350 CALORIE MEAL 09/13/2023 VRAYLAR 1.5 mg Oral Capsule take 1 capsule by mouth once daily as directed ZOLMitriptan (ZOMIG) 2.5 mg Oral Tablet TAKE 1 TABLET AT ONSET OF MIGRAINE, MAY REPEAT IN 1 HOUR IF NEEDED. MAX 2 TABLETS PER DAY // SUMATRIPTAN NOT APPROVED, PLEASE DC OUT OF YOUR SYSTEM 04/13/2023 albuterol (PROVENTIL HFA;VENTOLIN HFA) 90 mcg/actuation Inhl HFA Aerosol InhalerIndication s:Chest tightness,Shortne ss of breath,Viral URI Inhale 2 Puffs into the lungs every 4 hours as needed for Wheezing. 1 Each 2 12/11/2024 fluticasone propionate (FLONASE) 50 mcg/actuation Nasl [place], SuspensionIndicat ions:Chronic sinusitis, unspecified location,Sinus pressure,Hypertro phy of nasal turbinates 2 Sprays by Nasal route daily. 1 Each 5 12/09/2024 ipratropium (ATROVENT) 42 mcg (0.06 %) Nasl [place], Non-AerosolIndica tions:Chest tightness,Shortne ss of breath,Viral URI 2 Sprays by Nasal route 4 times daily as needed for Rhinitis. 2 sprays each nostril 15 mL 12/11/2024 ondansetron (ZOFRAN-ODT) 4 mg Oral Tablet, Rapid Dissolve DISSOLVE 1 TABLET IN MOUTH EVERY 6 HOURS NEEDED FOR NAUSEA FOR UP TO 30 DAYS sod paobo-kplxzp-uipz ez bottle (NEILMED SINUS RINSE COMPLETE) melquiades packet with rinse deviceIndications :Chronic sinusitis, unspecified location,Sinus pressure,Hypertro phy of nasal turbinates 1 Package by sinus irrigation route daily for 30 days. 30 Each 4 12/09/2024 5 documented as of this encounter Discharge Disposition Disposition Code Departure Means Destination Home or Self Care documented in this encounter Plan of Treatment Not on file documented as of this encounter Procedures Procedure Name Priority Date/Time Associated Diagnosis Comments CT SINUS LAND ALEJANDRINA WO CONTRAST Routine 12/28/2024 2:58 PM EST Chronic sinusitis, unspecified location Sinus pressure Hypertrophy of nasal turbinates documented in this encounter Results * CT SINUS LAND [...] and hypertrophy of nasal turbinates. J32.9-Chronic sinusitis, txhjbdgmyeb-HDP-61-CM J34.89-Other specified disorders of nose and nasal xzmfdhf-MNS-14-CM J34.3-Hypertrophy of nasal gzheoimctm-SMX-25-CM COMPARISON: None. PROCEDURE COMMENTS: Volumetric helical scanning [...] sinus pressureand hypertrophy of nasal turbinates. J32.9-Chronic sinusitis,bootcovwcll-LDY-76-CM J34.89-Other specified disorders of nose and nasal vtlygjx-MYP-62-CM J34.3-Hypertrophy of nasal jeaavcpfxs-GWH-14-CM COMPARISON: None. PROCEDURE COMMENTS: Volumetric helical scanning [...] the ordering clinician. us Ezequiel Howard MD IMYuli CT ORDERABLES Final Resu lt documented in this encounter Visit Diagnoses Diagnosis Chronic sinusitis, unspecified location Sinus pressure Other diseases of nasal cavity and sinuses Hypertrophy of nasal turbinates documented in this encounter Care Teams Barrelhead Inspector Relationship Specialty Start Date End Date No Pcp, Per Patient PCP - General 09/06/23 documented as of this encounter
--- OUTSIDE RECORDS SUMMARY | 2024-12-30 10:40 | XMS_ITS | Encounter Summary ---
Author Organization [place] [address] Care Team Providers Care Clinical Programmer Name Role Phone No Pcp, Per Patient Primary Care Provider Mallory payne Reason for Visit * Reason Onset Date Comments Central Patient Navigator Outreach 12/15/2024 attribution Encounter Details Date Type Department Care Team (Late st Contact Info) Description 12/15/2024 Patient Outreach [facility] [address] [place] [phone] No Pcp, Per Patient Central Patient Navigator Outreach (attribution) Social History Tobacco Use Types Packs/Day Years [...] on file documented as of this encounter Progress Notes * Merly Kern RN - 12/15/2024 11:36 AM EST During Attribution Outreach, care gaps addressed are New Patient Appointment. Patient/Parent/Guardian declined Call back number: [phone] Not interested at this time. Okay to try again in 6 months. * Mraiah Yip RN - 12/15/2024 10:45 AM EST During Attribution Outreach, care gaps addressed are New Patient Appointment. Patient/Parent/Guardian declined and Referral deferred for 6 months Call back number: [phone] documented in this encounter Plan of Treatment Not on file documented as of this encounter Visit Diagnoses Not on filedocumented in this encounter Care Teams Clinical Programmer Relationship Specialty Start Date End Date No Pcp, Per Patient PCP - General 09/06/23 documented as of this encounter
--- OUTSIDE RECORDS SUMMARY | 2024-12-30 10:40 | XMS_ITS | Clinical Summary ---
Author Organization [facility] Address [address] [place] [address] Phone Care Team Providers Care Otm Consultant Name Role Phone No Pcp, Per Patient Primary Care Provider Unavai lable Allergies Active Allergy Reactions Criticality Noted Date Comments Latex Other (See Comments) 04/09/2013 Medications fluticasone propionate (FLONASE) 50 mcg/actuation Nasl [place], Suspension USE 1 SPRAY(S) IN EACH NOSTRIL ONCE DAILY Active DEPO-PROVERA 150 mg/mL IM Suspension Inject 1 mL every 12 weeks 08/30/19 23 Active methylcellulose (CITRUCEL) 500 mg Oral Tablet Take 2 Tablets by mouth daily. Active ZOLMitriptan (ZOMIG) 2.5 mg Oral Tablet TAKE 1 TABLET AT ONSET OF MIGRAINE, MAY REPEAT IN 1 HOUR IF NEEDED. MAX 2 TABLETS PER DAY // SUMATRIPTAN NOT APPROVED, PLEASE DC OUT OF YOUR SYSTEM 04/13/19 24 Active vilazodone (VIIBRYD) 20 mg Oral Tablet TAKE 1 TABLET BY MOUTH ONCE DAILY WITH 350 CALORIE MEAL Active valACYclovir (VALTREX) 500 mg Oral Tablet 03/04/19 24 Active SUMAtriptan (IMITREX) 50 mg Oral Tablet 04/13/19 24 Active lamoTRIgine (LAMICTAL) 100 mg Oral Tablet Take 1 Tablet by mouth daily. Active fexofenadine (CAROLYN) 180 mg Oral Tablet 180 mg. Activ e dicyclomine (BENTYL) 20 mg Oral Tablet Take 1 Tablet by mouth 3 times daily. Active cloNIDine (CATAPRES) 0.1 mg Oral Tablet TAKE 1 TABLET BY MOUTH IN THE EVENING NEEDED FOR ANXIETY AND IRRITABILITY Active ARIPiprazole (ABILIFY) 5 mg Oral Tablet Take 5 mg by mouth daily. 10/10/19 24 Active propranoloL (INDERAL) 10 mg Oral Tablet TAKE 1/2 TO 1 (ONE-HALF TO ONE) TABLET BY MOUTH TWICE DAILY NEEDED FOR ANXIETY 09/19/19 24 Active vilazodone (VIIBRYD) 40 mg Oral Tablet TAKE 1 TABLET BY MOUTH ONCE DAILY TAKE WITH A 350 CALORIE MEAL 09/13/19 24 Active pseudoephedrine (SUDAFED) 30 mg Oral TabletIndicatio ns:COVID Take 1 Tablet by mouth every 6 hours as needed for Congestion. 30 Tablet 10/15/19 24 Active azelastine (ASTELIN) 137 mcg (0.1 %) Nasl [place], Non-Aerosol use 2 spray(s) in each nostril twice daily 02/04/20 24 Active VRAYLAR 1.5 mg Oral Capsule take 1 capsule by mouth once daily as directed Active montelukast (SINGULAIR) 10 mg Oral Tablet Take 1 Tablet by mouth nightly. Active meloxicam (MOBIC) 15 mg Oral Tablet TAKE 1 TABLET BY MOUTH ONCE DAILY NEEDED WITH FOOD 03/28/19 25 Active phentermine (ADIPEX-P) 37.5 mg Oral Tablet TAKE 1 TABLET BY MOUTH ONCE DAILY FOR 30 DAYS Active methylPREDNISol one (MEDROL DOSPACK) 4 mg Oral Tablets, Dose PackIndications :Acute sinusitis, recurrence not specified, unspecified location See package instructions 21 Tablet 12/01/19 25 Active sod nzafu-zgopeg-ye ueez bottle (NEILMED SINUS RINSE COMPLETE) melquiades packet with rinse deviceIndicatio ns:Chronic sinusitis, unspecified location,Sinus pressure,Hypert rophy of nasal turbinates 1 Package by sinus irrigation route daily for 30 days. 30 Each 4 12/10/19 25 025 Active fluticasone propionate (FLONASE) 50 mcg/actuation Nasl [place], SuspensionIndic ations:Chronic sinusitis, unspecified location,Sinus pressure,Hypert rophy of nasal turbinates 2 Sprays by Nasal route daily. 1 Each 5 12/10/19 25 Active ondansetron (ZOFRAN-ODT) 4 mg Oral Tablet, Rapid Dissolve DISSOLVE 1 TABLET IN MOUTH EVERY 6 HOURS NEEDED FOR NAUSEA FOR UP TO 30 DAYS Active ipratropium (ATROVENT) 42 mcg (0.06 %) Nasl [place], Non-AerosolIndi cations:Chest tightness,Short ness of breath,Viral URI 2 Sprays by Nasal route 4 times daily as needed for Rhinitis. 2 sprays each nostril 15 mL 12/12/19 25 Active albuterol (PROVENTIL HFA;VENTOLIN HFA) 90 mcg/actuation Inhl HFA Aerosol InhalerIndicati ons:Chest tightness,Short ness of breath,Viral URI Inhale 2 Puffs into the lungs every 4 hours as needed for Wheezing. 1 Each 2 12/12/19 25 Active ipratropium (ATROVENT) 42 mcg (0.06 %) Nasl [place], Non-AerosolIndi cations:COVID 2 Sprays by Nasal route 3 times daily. 15 mL 2 10/15/19 24 025 Discontinu ed(Cancell ed by ) azithromycin (ZITHROMAX) 250 mg Oral TabletIndicatio ns:Acute sinusitis, recurrence not specified, unspecified location Take 2 tablets (500 mg) on Day 1, followed by 1 tablet (250 mg) once daily on Days 2 through 5. 6 Tablet 12/01/19 25 025 Hospital, Clinic, or Other Facility Administered Medication Ordered Dose Route Frequency Start Date End Date Status albuterol-ipratropiu m (DUO-NEB) 3 mg-0.5 mg(2.5 mg base)/3 mL nebulizer solution 3 mLIndications:Chest tightness,Shortness of breath 3 mL NEBULIZATION ONCE 12/11/2024 12/11/2024 Ended Active Problems Problem Noted Date Diagnosed Date Episodic mood disorder 06/12/2024 Overview (12/11/2024): Sees comprehend Unable to lose weight 04/04/2024 Compression fracture of lumbar vertebra 03/28/19 25 Obesity 03/21/2024 Smoker 11/05/2023 Environmental allergies 10/23/2023 Right bundle branch block 06/05/2023 Assessment & Plan (12/11/2024 1:30 PM EST): Diagnosis discussed Strep and viral swab negative [...] ipratropium (ATROVENT) 42 mcg (0.06 %) Nasl [place], Non-Aerosol; 2 Sprays by Nasal route 4 times daily as needed for Rhinitis. 2 sprays each nostril albuterol (PROVENTIL HFA;VENTOLIN HFA) 90 mcg/actuation Inhl HFA Aerosol Inhaler; Inhale 2 Puffs into the lungs every 4 hours as needed for Wheezing. AMB REFERRAL TO FAMILY PRACTICE Herpes labialis 12/11/2022 Irritable bowel syndrome 06/05/2022 History of hepatitis C 10/22/2020 History of loop electrosurgical excision procedu re (LEEP) 10/22/2020 Overview (12/11/2024): LEEP in 2007 Type A blood, Rh negative 10/22/2020 Overview (12/11/2024): [ ] RhoGAM @ 28 wks History of intravenous drug abuse 10/22/2020 Overview (12/11/2024): Clean since May 2019 Peripheral vascular disease 09/15/2016 Herpes simplex keratitis 08/31/2016 Recurrent herpes simplex 08/31/2016 Encounters Date Type Department Care Team Description 12/28/2024 2:49 PM EST - 12/28/2024 11:59 PM EST Hospital Encounter [facility] [address] [place] [address] Ezequiel Howard MD Chronic sinusitis, unspecified location; Sinus pressure; Hypertrophy of nasal turbinates Discharge Disposition: Home or Self Care 12/15/2024 Patient Outreach [facility] [address] [place] [address] No Pcp, Per Patient Central Patient Navigator Outreach (attribution) 12/11/2024 12:30 PM EST Office Visit [address] [phone] Dawit Amador MD Viral URI (Primary Dx); Sore throat; Chest tightness; Shortness of breath; Right bundle branch block 12/09/2024 2:40 PM EST Office Visit [facility] [address] [address] Ezequiel Howard MD Chronic sinusitis, unspecified location (Primary Dx); Sinus pressure; Recurrent headache; Hypertrophy of nasal turbinates 11/30/2024 12:00 PM EDT Office Visit [address] [phone] Homero Pruitt PA-C Acute sinusitis, recurrence not specified, unspecified location (Primary Dx) from Last 3 Months Surgical History Surgery Date Site/Laterality Comments SECTION APPENDECTOMY OVARY REMOVAL Right Medical History Medical History Date Comments Irregular heart beat Social History Tobacco Use Types Packs/Day Years Used Date Smoking Tobacco: Former Cigarettes Q uit: 2023 Smokeless Tobacco: Never Tobacco Cessation:Counseling Given: Not Answered Alcohol Use Standard Drinks/Week Comments Not Currently 0 (1 standard drink = 0.6 oz pur e alcohol) sober 4 years + Sexually Active Control Partners Comments Not Currently Comments No Sex and Gender Information Value Date Recorded Sex Assigned at Not on file Legal Sex Female 9:18 PM EDT Gender Identity Not on file Sexual Orientation Not on file Last Filed Vital Signs Vital Sign Reading [...] Mass Index 31.48 12/11/2024 12:34 PM EST Plan of Treatment Health Maintenance Due Date Last Done Comments Annual Wellness Exam 07/26/1990 DTaP/TDaP/Td (2 - Tdap) 07/26/2006 04/15/1996 Cervical Cancer Screening 07/26/2008 Pap Smear 07/26/2008 HPV/Pap Cotest 07/26/2017 Hepatitis B Vaccine (2 of 3 - 19+ 3-dose series) 05/09/2024 04/11/2024 COVID-19 Vaccine (2024-2 6 season) 2024 10/05/2020, 09/07/2020 Influenza Vaccine (#1) 2024 Meningococcal B Vaccine Aged Out No l onger eligible based on patient's age to complete this topic Pneumococcal Vaccine 0-49 Aged Out No longer eligible based on patient's age to complete this topic Procedures Procedure Name Priority Date/Time Associated Diagnosis Comments CT SINUS LAND ALEJANDRINA WO CONTRAST Routine 12/28/2024 2:58 PM EST Chronic sinusitis, unspecified location Sinus pressure Hypertrophy of nasal turbinates POCT CEPHEID SARS COV-2 RNA + FLU A/B + RSV Routine 12/11/2024 1:17 PM EST Sore throat POCT CEPHEID STREP A DNA Routine 12/11/2024 1:07 PM EST Sore throat POCT EKG Routine 12/11/2024 12:45 PM EST Chest tightness from Last 3 Months Results * CT SINUS LAND ALEJANDRINA WO CONTRAST (12/28/2024 2:58 PM EST) Anatomical Region Laterality Modality Head Computed Tomogra phy 12/28/2024 2:5 8 PM EST Impressions 12/29/2024 8:58 AM EST [...] and hypertrophy of nasal turbinates. J32.9-Chronic sinusitis, thmoojhpcxw-BQV-68-CM J34.89-Other specified disorders of nose and nasal zzzdhhj-DPH-01-CM J34.3-Hypertrophy of nasal jzrmzmikhd-UBC-62-CM COMPARISON: None. PROCEDURE COMMENTS: Volumetric helical scanning [...] MD - 12/29/2024 CT SINUS LAND ALEJANDRINA ESCOBRA CONTRAST 12/28/2024 2:58 PM CLINICAL HISTORY: 39 years-old with chronic sinusitis with sinus pressureand hypertrophy of nasal turbinates. J32.9-Chronic sinusitis,zgksqtrgbwd-AKA-77-CM J34.89-Other specified disorders of nose and nasal jaiufac-AHA-76-CM J34.3-Hypertrophy of nasal huaewytwso-IAH-57-CM COMPARISON: None. PROCEDURE COMMENTS: Volumetric helical scanning [...] please contactthe office of the ordering clinician. Ezequiel Howard MD IMG CT ORDERABLES Final Resu lt * POCT CEPHEID SARS COV-2 RNA + [...] ORDERAB LES Final Result Performing Organization Address [facility] Phone Number SEP OFFICE * POCT CEPHEID STREP A DNA (12/11/2024 1:07 PM EST) STREP A DNA Negative Negative, Invalid SEP OFFICE Lot Number SEP OFFICE Expiration Date SEP OFFICE 12/11/2024 1:07 PM EST Dawit Amador MD POINT OF CARE TEST ORDERAB LES Final Result Performing Organization Address [facility] Co de Phone Number SEP OFFICE from Last 3 Months Insurance PLAN BY [facility] Member Subscriber Plan / Payer (Ef fective 2024-Present) Name:Rachele Velásquez Brown Relation to Subscriber:Self Name:Rachele Velásquez Payer ID:Not on file Group ID:Not on file Type:Not on file Address: [place] [id number] [employer]AN BY [employer] [address] [employer] Care Teams Otm Consultant Relationship Specialty Start Date End Date No Pcp, Per Patient PCP - General 09/06/23
--- OUTSIDE RECORDS SUMMARY | 2024-12-30 10:40 | XMS_ITS | Clinical Summary ---
Author Organization [facility] Phone Care Team Providers Care Tailor Fitter Name Role Phone Outside, Provider Unavailable [phone] Conditions or Problems No information available. Medications No information available. Medications Administered No information available. Allergies, Adverse Reactions, Alerts No information available. Results No information available. Plan of Care No information available. Procedures No information available. Vital Signs No information available. Immunizations No information available. Advance Directives No information available.
--- OUTSIDE RECORDS SUMMARY | 2024-12-30 10:40 | XMS_ITS | Clinical Summary ---
Author Organization [facility] Address [facility] [place] [address] Care Team Providers Care Program Counselor Name Role Phone Unavailable Primary Care Provider Unavailabl e Source Comments [facility] is fully rolled out with thefollowing exceptions:General Clinical Research [facility] Social History Tobacco Use Types Packs/Day Years Used Date Smoking Tobacco: Never Assessed Comments Unknown Sex and Gender Information Value Date Recorded Sex Assigned at Not on file Legal Sex Female 5:15 AM EST Gender Identity Not on file Sexual Orientation Not on file Plan of Treatment Health Maintenance Due Date Last Done Comments MMR IMMUNIZATION (1 of 1 - S tandard series) 07/26/1988 DTAP/Tdap/Td IMMUNIZATION (1 - Tdap) 07/26/1994 VARICELLA IMMUNIZATION (1 of 2 - 13+ 2-dose series) 07/26/2000 HEPATITIS B IMMUNIZATION (1 of 3 - 19+ 3-dose series) 07/26/2006 HPV IMMUNIZATION (1 - 3-dose SCDM series) 07/26/2014 AMB SEASONAL FLU VACCINE (#1) 10/06/2024 COVID-19 Vaccine (2024-2 6 season) 2024 HIB IMMUNIZATION Aged Out No longer e ligible based on patient's age to complete this topic IPV IMMUNIZATION Aged Out No longer e ligible based on patient's age to complete this topic MCV4 IMMUNIZATION Aged Out No longer eligible based on patient's age to complete this topic MENINGOCOCCAL B VACCINE Aged Out No l onger eligible based on patient's age to complete this topic PNEUMOCOCCAL IMMUNIZATION Aged Out No longer eligible based on patient's age to complete this topic Respiratory Syncytial Virus (RSV) <20mo Aged Out No longer eligible b ased on patient's age to complete this topic
--- OUTSIDE RECORDS SUMMARY | 2024-12-30 10:41 | XMS_ITS | Clinical Summary ---
Author Organization Healthcare Address [address] [place] [address] Care Team Providers Care Elevator Troubleshooter Name Role Phone Bennie Bernal MD Primary Care Provider [phone] Family History Medical History Relation Name Comments Hypertension Other 1 Heart attack Other 2 Relation Name Status Comments Other 1 Other 2 Social History Tobacco Use Types Packs/Day Years Used Date Smoking Tobacco: Heavy Smoker Comments:Heavy cigarette smo ker (20-39 per day) Comments Unknown Sex and Gender Information Value Date Recorded Sex Assigned at Not on file Legal Sex Female 6:50 PM EDT Gender Identity Not on file Sexual Orientation Not on file Last Filed Vital Signs Vital Sign Reading Time Taken Comments Blood Pressure 111/69 12/19/2017 1:46 PM EST Pulse 66 12/19/2017 1:46 PM EST Temperature - - Respiratory Rate - - Oxygen Saturation - - Inhaled Oxygen Concentration - - Weight 52 kg (114 lb 10.2 oz) 12/19/2017 1:46 PM EST Height 154.9 cm (5' 1 ) 12/19/2017 1:46 PM EST Body Mass Index 21.66 12/19/2017 1:46 PM EST Plan of Treatment Health Maintenance Due Date Last Done Comments [facility]-Depression Screening 1987 [facility]-Infant/Child/Adol SDOH Screenings 1987 [facility]-Varicella Vaccines (1 of 2 - 13+ 2-dose series) 07/26/2000 [facility]- SDOH Screenings 07/26/2005 [facility]-Adult SDOH Screenings 07/26/2005 [facility]-DTaP,Tdap,and Td Vaccines (2 - Tdap) 07/26/2006 04/15/1996 [facility]-Hepatitis B Vaccines (1 of 3 - 19+ 3-dose series) 07/26/2006 [facility]-Pap Smear 07/26/2008 HPV Vaccines (1 - 3-dose SCDM series) 07/26/2014 [facility]-Cervical Cancer Screening 07/26/2017 [facility]-HPV/Cotest 07/26/2017 [id number] Vaccine ( season) 2024 10/05/2020, 09/07/2020 [facility]-Influenza Vaccine (#1) 2024 [facility]-Zoster Vaccines (1 of 2) 07/26/2037 [facility]-Hepatitis A Vaccines Aged Out 09/29/2019 No longer eligible based on patient's age to complete this topic [facility]-HIB Vaccines Aged Out No longer e ligible based on patient's age to complete this topic [facility]-IPV Vaccines Aged Out No longer e ligible based on patient's age to complete this topic [facility]-Pneumococcal Vaccine: Pediatrics (0 to 5 Years) and At-Risk Patients (6 to 49 Years) Aged Out No longer eligible b ased on patient's age to complete this topic [facility]-Rotavirus Vaccines Aged Out No lo nger eligible based on patient's age to complete this topic Care Teams Elevator Troubleshooter Relationship Specialty Start Date End Date Bennie Bernal MD [address] [place] [address] PCP - General 06/18/20
[2024-12-30 11:06] LABS: Hematocrit 43.2 % (37.0-47.0); Hemoglobin 14.6 g/dL (12.2-16.2); Immature Granulocytes % 0.4 %; Mean Corpuscular HGB Conc 33.8 g/dL (31.8-35.4); Mean Corpuscular Hemoglobin 29.3 pg (27.0-31.2); Mean Corpuscular Volume 86.6 fl (81-99); Nucleated Red Blood Cells % 0 %; Platelet Count 392 K/mm3 (142-424); Red Blood Count 4.99 M/mm3 (4.20-5.40); Red Cell Distribution Width-SD 41.0 fL; White Blood Count 7.7 K/mm3 (4.8-10.8)
[2024-12-30 11:50] LABS: Alanine Aminotransferase 15 U/L (12-78); Albumin Level 5.0 g/dl (3.5-5.0); Alkaline Phosphatase 79 U/L (38-126); Anion Gap 11.4 mEq/L (5-15); Aspartate Amino Transferase 32 U/L (14-36); Bilirubin,Direct 0.1 mg/dl (0.0-0.4); Bilirubin,Indirect 0.5 mg/dL (0.0-0.9); Bilirubin,Total 0.6 mg/dl (0.2-1.3); Bilirubin,Unconjugated 0.4 mg/dL (0.0-1.1); Blood Urea Nitrogen 13 mg/dl (7-17); Calcium 10.6 mg/dl (8.4-10.2); Carbon Dioxide 24 mmol/L (22.0-30.0); Chloride 103 mmol/L (98-107); Cholesterol 240 mg/dl (140-200); Creatinine,Serum 0.90 mg/dl (0.52-1.04); Estimated Glomerular Filt Rate 70 ml/min (>60); GFR (African American) 85 ML/MIN (>60); Glucose 83 mg/dl (74-100); HDL Cholesterol 65 mg/dl (40-60); Magnesium 2.1 mg/dl (1.6-2.3); Potassium 4.4 mmoL/L (3.5-5.1); Sodium 134 mmol/L (136-145); Total Protein,Serum 8.0 g/dl (6.3-8.2); Triglycerides 95 mg/dl (30-150)
[2024-12-30 12:05] LABS: Free T4 (Free Thyroxine) 1.16 ng/dl (0.78-2.19)
[2024-12-30 12:20] LABS: Thyroid Stimulating Hormone 1.51 uIU/mL (0.465-4.68)
== END 2024-12-30 23:59 | disposition home or self-care (01) ==
LOC: LAB 10:37
PROVIDERS: Visit Provider Nurse Practitioner
DX: I25.10 Atherosclerotic heart disease of native coronary artery without angina pectoris (principal); I11.9 Hypertensive heart disease without heart failure; E78.2 Mixed hyperlipidemia
CPT/HCPCS: 36415; 80048; 80061; 80076; 83735; 84439; 84443; 85025

== ENCOUNTER 2025-01-15 11:48 | Outpatient (CLI) | payer MEDICAID, SELFPAY ==
--- NOTE | 2025-01-15 | CA_ITS ---
APPROVED REPORT Exam: Pharmacologic Technologist: Vicki Ruth Ht: 5 ft 1 in Wt: 158 lbs BSA: 1.71 m2 HR: 61 bpm BP: 102/77 mmHg Indications: Chest Pain. Medical History Medications: Albuterol, Buspirone, Zyrtec, Clonidine HCI, Flonase, Hydroxyzine Pamoate, Lamotrigine, Multivitamin, Nicotine, Sudogest, Effexor XR. Stress Test Details Test: Lexiscan Reason for pharmacologic stress test: physical limitation. HR Resting HR: 61 bpm Max Heart Rate (APMHR): 183.893218 bpm Max HR Achieved: 123 bpm Target HR (85% APMHR): 155.365630 bpm % of APMHR: 67.21 Recovery HR: 95 bpm BP Resting BP: 102.0/77.0 mmHg Max BP: 115.0/74.0 mmHg Recovery BP: 115.0/74.0 mmHg ECG Resting ECG: Sinus Rhythm. Clinical Stress Symptoms: Headache Stress ECG Conclusion Lungs CTA prior to test start. Symptoms: Headache-severe. Arrhythmias/Ectopy: PAC/PVC. ST-T Changes: Less than 0.5mm upsloping ST segment changes. Conclusion: Nondiagnostic ECG/Lexiscan. Electronically signed by : Mali Engel MD 01/19/2025 13:21:56
--- NOTE | 2025-01-15 12:00 | NM_ITS ---
APPROVED REPORT Exam: Nuclear Stress Test Indication: Chest pain, SOB, Palpitations, Fatigue, Tobacco use, Family history Patient Location: Outpatient Stress Tech: Vicki TATE Tech:REX Cortes RT(R)(N) Ht: 5 ft 0 in Wt: 154 lbs Bra Size: D HR: 64 bpm BP: 102/77 mmHg BSA: 1.67 m2 TID: 1.31 History: Chest pain, SOB, Palpitations, Fatigue, Tobacco use, Family history Procedure: Patient received 0.4 mg of intravenous Lexiscan, resting heart rate 64 bpm, resting blood pressure 102/77 mmHg, with Lexiscan maximum heart rate achieved was 126 bpm which is % of the maximum predicted heart rate and blood pressure was 118/66 mmHg. With Lexiscan, patient denied any complaint of chest pain. Cardiac Stress and Resting SPECT Images: Cardiac Stress and Resting SPECT images were obtained using technetium 99m Myoview 32.5 mCi stress and 10.33 mCi at rest. Resting and stress imaging in supine and prone positions demonstrate no evidence of fixed or reversible perfusion defects. There is increase in transient ischemic dilatation ratio (TID 1.31), which may be suggestive of possible multivessel disease or balanced ischemia. Gated imaging demonstrates normal global LV systolic function. LVEF is calculated at 58%. Conclusion: No evidence of fixed or reversible perfusion defects. There is increase in transient ischemic dilatation ratio (TID 1.31), which may be suggestive of possible multivessel disease or balanced ischemia. Gated imaging demonstrates normal global LV systolic function. LVEF is calculated at 58%. Electronically signed by : Mali Engel MD 01/19/2025 13:16:38
[2025-01-15 13:30] VITALS: BMI 29.8
--- NOTE | 2025-01-15 14:00 | CA_ITS ---
APPROVED REPORT EXAM: Comprehensive 2D, Doppler, and color-flow Echocardiogram Content Producer: Marie Norman RDCS Ht: 5 ft 1 in Wt: 158lbs BSA: 1.71 BP: 130/78 mmHg Indications: Chest pain M-Mode Dimensions RVDd 1.34 cm (0.9-2.6) LA Diam 3.04 cm (1.9-4.0) LVDd 5.43 cm (3.5-5.7) LVDs 3.76 cm (3.5-5.7) IVSd 0.45 cm (0.6-1.1) PWd 0.66 cm (0.6-1.1) EF (Teich) 57.80% FS 30.80% EDV (Teich) 143.10 mL TAPSE 2.20 (<1.7) ESV (Teich) 60.40 mL LV Diastology E Decel Time 203 (160-240 msec) E/A Ratio 1.7 Aortic Valve AO VTI 144.7 (18-25 cm) Mitral Valve MV E Max Nacho. 114.0 (40-130 cm/s) MV A Velocity 66.0 (40-130 cm/s) E/A Ratio 1.71 MV PHT 60.0 ms Tricuspid Valve TR P. Velocity 219.00 cm/s RAP Estimate 10.00 mmHg RVSP 29.20 mmHg Left Ventricle The left ventricle is normal size. Left ventricular systolic function is normal. The left ventricular ejection fraction is within the normal range. There is normal left ventricular wall thickness. There is normal LV segmental wall motion. The left ventricular diastolic function is normal. LVEF is 55% Right Ventricle The right ventricle is normal size. The right ventricular systolic function is normal. Atria The left atrium size is normal. The right atrium size is normal. There is no color Doppler evidence of interatrial shunt. Aortic Valve The aortic valve opens well. There is no hemodynamically significant aortic valvular stenosis. No aortic regurgitation is present. Mitral Valve The mitral valve is normal in structure. No evidence of mitral valve stenosis. Mild mitral regurgitation is present. Tricuspid Valve The tricuspid valve leaflets are thin and pliable. Trace tricuspid regurgitation. There is insufficient TR jet to estimate RVSP. Pulmonic Valve The pulmonary valve is grossly normal in structure. Trace pulmonic valve regurgitation is present. Great Vessels The aortic root is normal in size. IVC is normal in size and collapses >50% with inspiration. Pericardium There is no pericardial effusion. Other Information Study Quality: Fair Conclusion Normal biventricular systolic function. Mild MR. Electronically signed by : Mali Engel MD 01/17/2025 16:37:47
[2025-01-15] MEDS: AMINOPHYLLINE 250MG/10ML VIAL 125 MG IV (14:24)
[2025-01-15 14:25] VITALS: BP 102/77; PULSE 61; RESP 14
[2025-01-15] MEDS: SODIUM CHLORIDE 0.9% 10ML SYR (RAD ONLY) 10 ML IV ×2 (14:52)
[2025-01-15] MEDS: ISOTOPE MYOVIEW (PER STUDY) 1 DOSE IV (14:52)
== END 2025-01-15 23:59 | disposition home or self-care (01) ==
LOC: RAD 11:49
PROVIDERS: PCP Nurse Practitioner; Visit Provider Nurse Practitioner
DX: I49.1 Atrial premature depolarization (principal); I49.3 Ventricular premature depolarization; I34.0 Nonrheumatic mitral (valve) insufficiency; I25.10 Atherosclerotic heart disease of native coronary artery without angina pectoris; I11.9 Hypertensive heart disease without heart failure; E78.2 Mixed hyperlipidemia; R94.39 Abnormal result of other cardiovascular function study; Z72.0 Tobacco use
CPT/HCPCS: 78452; 93017; 93018; 93306; A9502; J0280; J2785